=== PATIENT | male | born 1950 | race Caucasian/White ===

== ENCOUNTER 2023-09-08 16:15 | Outpatient (REF) | payer MEDICARE, OTHER, SELFPAY ==
--- NOTE | ~2023-09-08 | MR_ITS ---
EXAMINATION: MR BRAIN WITHOUT AND WITH CONTRAST CLINICAL INFORMATION: Pituitary neoplasm. COMPARISON: Brain MRI from 07/26/2020. TECHNIQUE: MRI of the brain was obtained using pituitary protocol without and following the administration of 5 mL of Gadavist intravenous contrast. FINDINGS: Redemonstrated heterogeneously enhancing mass expanding the sella turcica, measuring 1.9 x 1.7 x 1.9 cm (previously 1.8 x 1.7 x 1.8 cm in 2020). Similar to prior exam, a portion of this lesion appears to extend into the upper aspect of the left cavernous sinus with less than 50% encasement of the cavernous segment of the left internal carotid artery. There is restricted diffusion within this lesion. Normally enhancing pituitary parenchyma appears deviated superiorly into the right. Moderate rightward deviation of and otherwise normal-appearing pituitary infundibulum. No overt mass effect on the optic chiasm. No focal restricted diffusion is demonstrated to suggest acute or subacute cerebral ischemia. Scattered and partially confluent periventricular, deep white matter, and brainstem T2 FLAIR hyperintensities consistent with moderate underlying microangiopathy. Proportional prominence of the ventricles and sulcal spaces without evidence of obstructive hydrocephalus. No additional abnormal mass effect. No midline shift. Normal positioning of the cerebellar tonsils. Normal arterial and venous vascular flow voids are present. No additional abnormal contrast enhancement. Normal, homogeneous marrow signal. Mild mucosal thickening of the paranasal sinuses. No signal abnormalities within the mastoids. Bilateral lens extractions. MR/MR head/brain wo/w con IMPRESSION: 1. 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 A portion of this lesion appears to extend into the upper aspect of the left cavernous sinus. 2. Moderate underlying microangiopathy and generalized cerebral volume loss.
[2023-09-08] MEDS: gadobutroL 7.5 ML VIAL IVPUSH (17:20)
== END 2023-09-08 16:16 | disposition home or self-care (01) ==
LOC: HO.MRI 16:15
PROVIDERS: PCP Internal Medicine; Visit Provider Physician Assistant
DX: D49.7 Neoplasm of unspecified behavior of endocrine glands and other parts of nervous system (principal)
CPT/HCPCS: 70553; A9585